=== PATIENT | female | born 1985 | race Two or more races ===

== ENCOUNTER 2024-02-10 13:05 | Emergency (ER) | payer OTHER ==
[~2024-02-10] VITALS: Ht 152.4 cm; Wt 79.5 kg
[2024-02-10 13:24] VITALS: TEMP 98.2
[2024-02-10 17:42] VITALS: BP 111/78; PULSE 75; RESP 18
== END 2024-02-10 17:44 | disposition home or self-care (01) ==
LOC: EMS 13:05
DX: S09.90XA Unspecified injury of head, initial encounter (principal); W11.XXXA Fall on and from ladder, initial encounter; Y93.89 Activity, other specified; Y92.89 Other specified places as the place of occurrence of the external cause; Y99.8 Other external cause status
CPT/HCPCS: 70450; 72100; 99284